=== PATIENT | male | born 1950 | race African-American/Black ===

== ENCOUNTER 2021-12-15 15:09 | Emergency (ER) | payer OTHER ==
[2021-12-15 16:38] LABS: SARS-CoV-2 NAA Rapid Test Not Detected (NotDetected)
[2021-12-15] MEDS ORDERED: Ondansetron PF 4 MG/2 ML Vial ONE (17:26)
[2021-12-15] MEDS ORDERED: Morphine 4 MG/ML VIAL ONE (17:26)
== END 2021-12-15 19:48 | disposition short-term general hospital (02) ==
LOC: NAV ERS 15:09
DX: S06.9X1A Unspecified intracranial injury with loss of consciousness of 30 minutes or less, initial encounter (principal); M54.10 Radiculopathy, site unspecified; I10 Essential (primary) hypertension; Z79.4 Long term (current) use of insulin; Z79.899 Other long term (current) drug therapy; Y04.2XXA Assault by strike against or bumped into by another person, initial encounter
CPT/HCPCS: 36416; 70450; 72125; 96374; 96375; J2270; J2405; U0002